=== PATIENT | female | born 1940 | race Caucasian/White ===

== ENCOUNTER 2022-02-27 12:49 | Outpatient (REF) | payer OTHER, SELFPAY ==
[2022-02-27 13:25] LABS: Abs Immature Grans 0.02 10^3/uL (0.0-0.06); Absolute Basophil Count 0.03 10^3/uL (0.0-0.2); Absolute Eosinophil Count 0.03 10^3/uL (0.0-0.7); Absolute Lymphocyte Count 1.41 10^3/uL (1.2-3.4); Absolute Neutrophil Count 4.01 10^3/uL (1.2-6.7); Basophils % 0.5; Eosinophils % 0.5; HCT 37.8 % (36.0-46.0); Immature Grans % 0.3; Lymphocytes % 22.4; MCH 29.5 pg (27.0-33.0); MCHC 34.4 % (32.0-36.0); MCV 86 fL (80-95); MPV 10.1 fL (8.0-11.0); Monocytes % 12.7; Neutrophils % 63.6; Platelet Count 275 10^3/uL (130-400); RBC 4.41 10^6/uL (3.93-5.22); RDW 11.5 % (11.7-14.6)
[2022-02-27 13:56] LABS: ALT 30 U/L (14-59); AST 32 U/L (15-37); Albumin 3.9 g/dL (3.4-5.0); Alkaline Phosphatase 73 U/L (46-116); Anion Gap 7.7 mmol/L (3-11); BUN 9 mg/dL (7-18); Bilirubin, Total 0.3 mg/dL (0.2-1.0); CO2 30.3 mmol/L (21.0-32.0); CREATININE 0.7 mg/dL (0.55-1.02); Calcium 9.5 mg/dL (8.5-10.1); Calculated LDL 149 mg/dL (<100); Chloride 97 mmol/L (98-107); Cholesterol 220 mg/dL (<200); Estimated GFR 87.37 (mL/min/1.73m2); Glucose 109 mg/dL (74-106); HDL Cholesterol 46 mg/dL (40-60); Potassium 3.8 mmol/L (3.5-5.1); Sodium 135 mmol/L (136-145); TSH 2.68 uIU/mL (0.36-3.74); Total Protein 7.7 g/dL (6.4-8.2); Triglyceride 127 mg/dL (<150)
== END 2022-02-27 12:50 | disposition home or self-care (01) ==
LOC: LBN 12:49
PROVIDERS: Visit Provider Nurse Practitioner Family
DX: I10 Essential (primary) hypertension (principal)
CPT/HCPCS: 80053; 80061; 84443; 85025

== ENCOUNTER 2024-04-26 18:32 | Emergency (ER) | payer MEDICARE, SELFPAY ==
[2024-04-26] VITALS (14 sets, daily range): BP systolic 191–221; BP diastolic 80–108; PULSE 70–99; RESP 16–20; TEMP 36.5; O2SAT 98–99
--- NOTE | 2024-04-26 18:30 | RT.EKG_ITS ---
APPROVED REPORT Exam: Resting ECG Reason for Exam: chest tightness Patient Location: E HR:84 bpm ECG Measurements Heart Rate 84 AXIS IL 170 P 70 QRSd 94 QRS 75 QT 382 T 30 QTc 451 Conclusion Sinus rhythm 84 normal axis no stemi
--- NOTE | 2024-04-26 18:45 | DI.RAD_ITS ---
Exam(s) XR CHEST 2V PA LATERAL EXAM: XR CHEST 2V PA LATERAL CLINICAL HISTORY: SOB, CP TECHNIQUE: 2D digital imaging was performed of the chest. Two images were obtained. PA and lateral views were obtained. COMPARISON: No exams were available for comparison FINDINGS: MEDIASTINUM: Normal. HEART: Normal. PULMONARY VASCULATURE: Normal. LUNGS: Clear. PLEURAL SPACE: No pleural effusion or pneumothorax. BONE:Within normal limits for the patient's age. OTHER FINDINGS:Normal. IMPRESSION: No acute pulmonary findings. DATA REPOSITORY: RADIATION DOSE DELIVERED:
--- NOTE | 2024-04-26 19:08 | ED.GENADUL_ITS ---
Discharge Plan Disposition Patient Disposition: Home Condition: Stable Discharge Details Clinical Impression: Diarrhea, Acute hyponatremia, Ovarian mass, left Primary Care Provider: Rahel Cordero ED Provider: Katrin Zaldivar Home Meds and New Rx's Prescriptions: No Action lisinopril 5 mg tablet 5 mg PO DAILY Qty: 90 3RF mupirocin 2 % ointment 1 applic topical TID Qty: 15 0RF amoxicillin-pot clavulanate 875-125 mg tablet 1 tab PO Q12H Qty: 14 0RF Discharge Instructions Instructions: Diarrhea, Adult ED, Ovarian Cyst ED, Hyponatremia Additional Instructions: CT shows a large round solid mass in the left side of your pelvis. This needs to be followed up very closely. Please follow-up with [facility] within the next week. You may also follow-up with your primary care provider. Your sodium level was low today which can be caused by the diarrhea. Please increase your sodium intake and drink some oral electrolyte drinks such as Gatorade or similar while having the diarrhea. Please collect stool at home and bring in to the lab for further testing. If you have diarrhea for longer than a week or more than 7 episodes a day you may try some Imodium and take as directed which she can get [id number]. Continue to apply the topical cream to your eleanor- area and rectum as needed for the burning. Referrals: [facility] [Provider Group] - 1 week (Left pelvic Mass) Rahel Cordero NP [Primary Care Provider] - HPI General Mode of arrival: ambulatory . Date/Time Provider Initiated Documentation: 04/26/24 18:35 . Limitations to Documentation: no limitations . Information obtained by: patient, RN notes reviewed and old records reviewed . HPI Narrative: 83-year-old female presents to the ER with a chief complaint of chest tightness, upper midepigastric abdominal pain, diarrhea and sinusitis type symptoms. She has been on Augmentin for the last 9 days. She reports diarrhea for the last week. She is hypertensive upon arrival. Related Data Home Medications ?Medication ?Instructions ?Recorded ?Confirmed amoxicillin 875 mg-potassium 1 tab PO Q12H #14 tabs 04/14/24 04/26/24 clavulanate 125 mg tablet lisinopril 5 mg tablet 5 mg PO DAILY #90 tabs 04/14/24 04/26/24 mupirocin 2 % topical ointment 1 applic topical TID #15 grams 04/14/24 04/14/24 Previous Rx's ?Medication ?Instructions ?Recorded amoxicillin 875 mg-potassium 1 tab PO Q12H #14 tabs 04/14/24 clavulanate 125 mg tablet lisinopril 5 mg tablet 5 mg PO DAILY #90 tabs 04/14/24 mupirocin 2 % topical ointment 1 applic topical TID #15 grams 04/14/24 Allergies Allergy/AdvReac Type Severity Reaction Status Date / Time No Known Allergies Allergy Verified 04/26/24 18:48 General Stated Complaint: RespSymp YVROSE: 3 Review of Systems All systems reviewed & are unremarkable except as noted in HPI and below ENT Ears, Nose, Mouth, and Throat: Reports nasal congestion Gastrointestinal Gastrointestinal: Reports abdominal pain and Reports diarrhea Genitourinary Genitourinary: Reports dysuria Exam Narrative Exam Narrative: Constitutional: Alert and oriented x3. Appears stated age. Normal body habitus. Head: Normocephalic, no trauma. Eyes: Pupils PERRL, Red reflex noted, EOM's intact. Eyelids symmetrical without lesions, discharge, or swelling. ENT: Bilateral TM's WNL, External ear normal to inspection, no mastoid TTP, swe lling, or erythema, Nasal turbinates WNL, no nasal discharge. Normal dentition, Posterior pharynx WNL, no exudate. Chest: RRR, Normal S1, S2, distal pulses intact. Resp: Lungs clear to auscultation bilaterally, no wheezes, rales, or rhonchi. Abdomen: Soft, non-distended, Normoactive bowel sounds all 4 quads. Musculoskeletal: Normal gait, Moves all 4 extremities without difficulty. Skin: No suspicious rashes or lesions. Capillary refill less than 2 sec. Neurologic: Cranial nerves II-XII intact. Alert and oriented x 3. Motor: No deficits noted. Sensory: Intact bilaterally all 4 extremities. Hematologic/Lymphatic: No ecchymosis, no lymphadenopathy. Course Vital Signs Vital signs: Vital Signs Temperature 36.5 C 04/26/24 18:35 Pulse 99 H 04/26/24 18:35 Respiratory Rate 20 04/26/24 18:35 Blood Pressure 220/108 H 04/26/24 18:35 Pulse Oximetry 98 04/26/24 18:35 Temperature 36.5 C 04/26/24 18:46 Temperature Source Oral 04/26/24 18:46 Pulse 99 H 04/26/24 18:46 Respiratory Rate 20 04/26/24 18:46 Respiratory Effort Normal 04/26/24 19:06 Respiratory Depth Normal 04/26/24 19:06 Blood Pressure 220/108 H 04/26/24 18:46 Blood Pressure Position Sitting 04/26/24 18:46 Pulse Oximetry 98 04/26/24 18:46 Oxygen Delivery Method Room Air 04/26/24 18:46 Oxygen Flow Rate 0 04/26/24 18:35 Pain Level 0 04/26/24 18:35 Medical Decision Making 83-year-old female presents to the ER with a chief complaint of chest tightness, upper midepigastric abdominal pain, diarrhea and sinusitis type symptoms. She has been on Augmentin for the last 9 days. She reports diarrhea for the last week. She is hypertensive upon arrival. Workup ordered including EKG, serial troponins, CBC CMP stool, Fluvid urinalysis and C. difficile. CBC shows no leukocytosis, sodium is low at 129 potassium 3.7 chloride 92 troponin less than 4, serial troponins canceled. Lipase is elevated at 105. Small blood in the urinalysis no leukocytes nitrites no evidence for UTI. Negative COVID flu and RSV. CT abdomen pelvis added on due to the elevated lipase. This could be from the diarrhea. CT shows a left pelvic mass concerning for Ovarian neoplasm or cystadenoma, given strict follow up instructions and home care. Patient given Pepcid prior to discharge and placed on care management list for assistance with follow up with [facility] or PCP. Blood pressures remain somewhat hypertensive throughout stay systolic 184. Given instructions for Imodium if continued diarrhea and sent home with stool collection kit. All her questions were answered to the best my ability. This text was generated using [employer] system, please disregard any oddities of phrase or misspellings. Imaging Data Radiologic Study: Imaging: CT Scan Radiologist's impression: Stomach and bowel: No oral contrast. Stomach partially decompressed. Fluid throughout the small bowel. No small bowel dilatation to suggest obstruction. Fluid throughout the colon suggesting diarrhea. No evidence of diverticulitis or colitis. Appendix: Appendix partially obscured but normal in caliber and appearance through its visualized portion. Intraperitoneal space: No gross ascites or free air. Vasculature: Normal caliber abdominal aorta. Lymph nodes: No pathologically enlarged mesenteric, retroperitoneal, or pelvic sidewall lymph nodes. Urinary bladder: Urinary bladder moderately distended. Mild circumferential bladder wall thickening. Reproductive: Prior hysterectomy. Normal-appearing right ovary, partially obscured. 9.6 cm x 5.8 cm x 7.1 cm cystic and solid mass in the expected location of the left ovary. Bones/joints: No acute fracture seen among the bones of the abdomen or pelvis. Spinal degenerative change with discogenic degeneration, endplate irregularities, Schmorl's nodes, vacuum disc deformities, marginal osteophytes, and facet arthrosis at multiple levels resulting in multilevel central canal and neural foraminal narrowing. Severe central canal narrowing noted at L4-L5. Soft tissues: No significant ventral or inguinal hernia. IMPRESSION: 1. Fluid throughout the small bowel and colon, nonspecific but commonly seen in the setting of diarrhea from any cause, including gastroenteritis. 2. Small hiatal hernia. 3. 9.6 cm x 5.8 cm x 7.1 cm cystic and solid mass in the expected location of the left ovary. A cystic ovarian neoplasm is suspected such as a serous or mucinous cystadenoma. Direct comparison with prior imaging is recommended versus further evaluation as per institution protocol. 4. Mild circumferential bladder wall thickening. Acute cystitis could have this appearance although an artifactual appearance created by underdistention can also produce apparent bladder wall thickening. Clinical correlation is recommended. Thank you for allowing us to participate in the care of your patient. Dictated and Authenticated by: Nish Wilson MD Lab Data Lab results reviewed: Yes I reviewed the patient's lab results. Labs: Laboratory Tests Range/Units 04/26/24 04/26/24 04/26/24 18:50 19:00 19:12 WBC (4.4-10.8) 10^3/uL 9.91 RBC (3.93-5.22) 10^6/uL 4.64 Hgb (11.2-15.7) g/dL 13.8 Hct (36.0-46.0) % 39.8 MCV (80-95) fL 86 MCH (27.0-33.0) pg 29.7 MCHC (32.0-36.0) % 34.7 RDW (11.7-14.6) % 11.9 Plt Count (130-400) 10^3/uL 243 MPV (8.0-11.0) fL 9.1 Immature Gran % % 0.3 Neutrophils % % 62.0 Lymphocytes % % 26.3 Monocytes % % 9.6 Eosinophils % % 1.2 Basophils % % 0.6 Nucleated RBC % (0.0-0.3) % 0.0 Absolute Neutrophils (1.2-6.7) 10^3/uL 6.14 Absolute Lymphocytes (1.2-3.4) 10^3/uL 2.61 Absolute Monocytes (0.1-0.8) 10^3/uL 0.95 H Absolute Eosinophils (0.0-0.7) 10^3/uL 0.12 Absolute Basophils (0.0-0.2) 10^3/uL 0.06 Sodium (136-145) mmol/L 129 L Potassium (3.5-5.1) mmol/L 3.7 Chloride (98-107) mmol/L 92 L Carbon Dioxide (21.0-32.0) mmol/L 27.8 Anion Gap (3-11) mmol/L 9.2 BUN (7-18) mg/dL 9 Creatinine (0.55-1.02) mg/dL 0.6 Est GFR (CKD-EPI 2020) (mL/min/1.73m2) 89.56 Glucose (74-106) mg/dL 95 Calcium (8.5-10.1) mg/dL 9.5 Magnesium (1.8-2.4) mg/dL 2.2 Total Bilirubin (0.2-1.0) mg/dL 0.5 AST (15-37) U/L 27 ALT (14-59) U/L 38 Alkaline Phosphatase (46-116) U/L 78 Troponin I (<or=51) ng/L < 4 Total Protein (6.4-8.2) g/dL 7.9 Albumin (3.4-5.0) g/dL 4.1 Lipase (<78) U/L 105 H Urine Color (Yellow) Yellow Urine Clarity (Clear) Clear Urine pH (5-8) 6.5 Ur Specific [place] (1.005-1.025) 1.010 Urine Protein (Neg-Trace) mg/dL Negative Urine Ketones (Negative) mg/dL Negative Urine Blood (Negative) Small H Urine Nitrite (Negative) Negative Urine Bilirubin (Negative) Negative Urine Urobilinogen (Up to 0.2) mg/dL 0.2 Ur Leukocyte Esterase (Negative) Negative Urine RBC (0-2) HPF 0-2 Urine WBC (0-5) HPF Negative Ur Epithelial Cells (Negative) HPF Rare Urine Crystals (Negative) HPF Negative Urine Bacteria (Negative) HPF Negative Urine Casts (Negative) LPF Negative Urine Mucus (Negative) Negative Ur Culture Indicated? No Urine Glucose (Negative) mg/dL Negative COVID-19 Source Nasopharynx SARS-CoV-2 (PCR) (Negative) Negative Influenza Type A (PCR) (Negative) Negative Influenza Type B (PCR) (Negative) Negative RSV (PCR) (Negative) Negative Range/Units 04/26/24 04/26/24 19:52 21:52 WBC (4.4-10.8) 10^3/uL RBC (3.93-5.22) 10^6/uL Hgb (11.2-15.7) g/dL Hct (36.0-46.0) % MCV (80-95) fL MCH (27.0-33.0) pg MCHC (32.0-36.0) % RDW (11.7-14.6) % Plt Count (130-400) 10^3/uL MPV (8.0-11.0) fL Immature Gran % % Neutrophils % % Lymphocytes % % Monocytes % % Eosinophils % % Basophils % % Nucleated RBC % (0.0-0.3) % Absolute Neutrophils (1.2-6.7) 10^3/uL Absolute Lymphocytes (1.2-3.4) 10^3/uL Absolute Monocytes (0.1-0.8) 10^3/uL Absolute Eosinophils (0.0-0.7) 10^3/uL Absolute Basophils (0.0-0.2) 10^3/uL Sodium (136-145) mmol/L Potassium (3.5-5.1) mmol/L Chloride (98-107) mmol/L Carbon Dioxide (21.0-32.0) mmol/L Anion Gap (3-11) mmol/L BUN (7-18) mg/dL Creatinine (0.55-1.02) mg/dL Est GFR (CKD-EPI 2020) (mL/min/1.73m2) Glucose (74-106) mg/dL Calcium (8.5-10.1) mg/dL Magnesium (1.8-2.4) mg/dL Total Bilirubin (0.2-1.0) mg/dL AST (15-37) U/L ALT (14-59) U/L Alkaline Phosphatase (46-116) U/L Troponin I (<or=51) ng/L Cancelled Cancelled Total Protein (6.4-8.2) g/dL Albumin (3.4-5.0) g/dL Lipase (<78) U/L Urine Color (Yellow) Urine Clarity (Clear) Urine pH (5-8) Ur Specific [place] (1.005-1.025) Urine Protein (Neg-Trace) mg/dL Urine Ketones (Negative) mg/dL Urine Blood (Negative) Urine Nitrite (Negative) Urine Bilirubin (Negative) Urine Urobilinogen (Up to 0.2) mg/dL Ur Leukocyte Esterase (Negative) Urine RBC (0-2) HPF Urine WBC (0-5) HPF Ur Epithelial Cells (Negative) HPF Urine Crystals (Negative) HPF Urine Bacteria (Negative) HPF Urine Casts (Negative) LPF Urine Mucus (Negative) Ur Culture Indicated? Urine Glucose (Negative) mg/dL COVID-19 Source SARS-CoV-2 (PCR) (Negative) Influenza Type A (PCR) (Negative) Influenza Type B (PCR) (Negative) RSV (PCR) (Negative) Quality:SDOH Health Related Social Needs: No Data to Display PFSH All Active Problems (Updated 04/26/24 @ 21:42 by Katrin Zaldivar NP) Ovarian mass, left (Acute) Acute hyponatremia (Acute) Diarrhea (Acute) Essential hypertension (Acute) Social History Smoking/Tobacco Use Status: Former Tobacco Use tobacco type: cigarettes Quit Date: 02/16/79 Tobacco: How many years used: 20 Second Hand Exposure: Yes Smoking risk assessment performed?: Yes Alcohol Intake: former Drug use: Never Substance use type: does not use Caregiver/Support person: No Household members: friend(s) Communication Needs: Corrective Lenses Do you need help understanding health information?: Rarely Pets and animals: No Sexually active: No Do you think of yourself as: straight/heterosexual Current gender identity: female What is your relationship status?: How often do you talk on the phone with friends or family?: once per week How often do you get together with friends or relatives?: once per week How often do you attend samaritan or moravian services?: 4 or more times per year Do you belong to any clubs or organized social groups?: no Panel score (0-1 are the most socially isolated patients): 1 What type of physical activity do you participate in: walking Duration: 30-45 minutes/day Nicole/Sikh: Jehovah'S Witness Special nicole needs: No Seatbelt use: always Helmet use: No Drive intox or ride w/intox non emergency services ambulance driver: No
[2024-04-26 19:27] LABS: Abs Immature Grans 0.03 10^3/uL (0.0-0.06); Absolute Basophil Count 0.06 10^3/uL (0.0-0.2); Absolute Eosinophil Count 0.12 10^3/uL (0.0-0.7); Absolute Lymphocyte Count 2.61 10^3/uL (1.2-3.4); Absolute Monocyte Count 0.95 10^3/uL (0.1-0.8); Absolute Neutrophil Count 6.14 10^3/uL (1.2-6.7); Basophils % 0.6 %; Eosinophils % 1.2 %; HCT 39.8 % (36.0-46.0); HGB 13.8 g/dL (11.2-15.7); Immature Grans % 0.3 %; Lymphocytes % 26.3 %; MCH 29.7 pg (27.0-33.0); MCHC 34.7 % (32.0-36.0); MCV 86 fL (80-95); MPV 9.1 fL (8.0-11.0); Monocytes % 9.6 %; Platelet Count 243 10^3/uL (130-400); RBC 4.64 10^6/uL (3.93-5.22); RDW 11.9 % (11.7-14.6); RDW-SD 37.6 fL; WBC 9.91 10^3/uL (4.4-10.8)
--- NOTE | 2024-04-26 19:30 | DI.CT_ITS ---
Exam(s) CT ABDOMEN PELVIS W EXAM: CT ABDOMEN PELVIS W CLINICAL HISTORY: Abdominal pain, Diarrhea TECHNIQUE: Imaging Protocol: Axial computed tomography images with coronal and sagittal reformatted images were created and reviewed. CONTRAST MATERIAL: Intravenous: Omnipaque 350 Contrast volume:75 mL Oral: No COMPARISON: No exams were available for comparison FINDINGS: ABDOMEN: Lung Bases: There is a small hiatal hernia. There is a calcified granuloma in the right lower lobe. Liver: Normal density. No measurable mass. Portal, Superior Mesenteric, and Splenic Veins: Unremarkable. Gallbladder and Biliary Tract: No radiodense calculus or dilation. Pancreas: Normal density, no abnormal calcifications or inflammatory process. Spleen: Normal. Adrenals: No masses seen. Kidneys: Normal size, contour and axis. No radiodense stones or obstructive uropathy. No masses seen. There is a duplicated left renal collecting system. Abdominal Aorta: Abdominal portion non-dilated. Atherosclerotic calcification is present. Bowel: No obstruction or bowel wall thickening. There is no evidence of appendicitis. Peritoneal Cavity: No ascites, collection or mesenteric inflammatory response. No free air. Lymph Nodes: Within normal limits. Bones: Within normal limits for the patient's age. Soft Tissues: Unremarkable. PELVIS: Bladder: Mild diffuse wall thickening of the urinary bladder. This may represent a cystitis. Please correlate clinically. Reproductive Organs: There is a 9.7 x 6.1 cm predominantly cystic mass in the left adnexa. It appear s to arise from the ovarian vessels suggesting this is an ovarian lesion. The right ovary is unremar kable and measures 1.4 x 2.2 cm (series 10, image 145). The patient is status post hysterectomy. Lymph Nodes: Within normal limits. Bones: Within normal limits for the patient's age. IMPRESSION: 1. 9.6 x 6.1 left adnexal predominantly cystic mass. Ovarian cystic neoplasm is suspected. Gynecolo gic consult is recommended for further evaluation. 2. Mild diffuse wall thickening of the urinary bladder. This may represent a cystitis. Please corre late clinically. RADIATION DOSE DELIVERED: 375.42mGy.cm Total DLP DATA REPOSITORY: All CT scans at this facility are submitted to the National Radiology Data Registry (NRDR) Dose Index Registry (DIR) with the [employer] (ACR). RADIATION OPTIMIZATION: All CT scans at this facility use at least one of these dose optimization te chniques: automated exposure control; mA and/or kV adjustment per patient size (includes targeted exa ms where dose is matched to clinical indication); or iterative reconstruction.
[2024-04-26 19:36] LABS: Bilirubin Negative (Negative); Blood Small (Negative); Clarity Clear (Clear); Glucose Negative (Negative); Ketones Negative (Negative); Leukocyte Esterase Negative (Negative); Nitrite Negative (Negative); Urobilinogen 0.2 mg/dL (Up to 0.2); pH 6.5 (5-8)
[2024-04-26 19:38] LABS: COVID-19 PCR Negative (Negative); Influenza A PCR Negative (Negative); Influenza B PCR Negative (Negative); RSV PCR Negative (Negative)
[2024-04-26 19:39] LABS: Lipase 105 U/L (<78)
[2024-04-26 19:42] LABS: Source Nasopharynx
[2024-04-26 19:45] LABS: ALT 38 U/L (14-59); AST 27 U/L (15-37); Albumin 4.1 g/dL (3.4-5.0); Alkaline Phosphatase 78 U/L (46-116); Anion Gap 9.2 mmol/L (3-11); BUN 9 mg/dL (7-18); Bilirubin, Total 0.5 mg/dL (0.2-1.0); CO2 27.8 mmol/L (21.0-32.0); CREATININE 0.6 mg/dL (0.55-1.02); Calcium 9.5 mg/dL (8.5-10.1); Chloride 92 mmol/L (98-107); Estimated GFR 89.56 (mL/min/1.73m2); Glucose 95 mg/dL (74-106); Magnesium 2.2 mg/dL (1.8-2.4); Potassium 3.7 mmol/L (3.5-5.1); Sodium 129 mmol/L (136-145); Total Protein 7.9 g/dL (6.4-8.2); Troponin I < 4 ng/L (<or=51)
[2024-04-26 19:45] LABS: Bacteria Negative HPF (Negative); C & S Indicated? No; Casts Negative LPF (Negative); Crystals Negative HPF (Negative); Epithelial Cells Rare HPF (Negative); Mucus Negative (Negative); RBC 0-2 HPF (0-2); WBC Negative HPF (0-5)
[2024-04-26] MEDS: Omnipaque 350 MG/ML 100 ML BTL IJ (20:04)
[2024-04-26] MEDS: Normal Saline - Diluent 50 ML VIAL IJ (20:05)
[2024-04-26] MEDS: Normal Saline Flush 10 ML SYR IVP (20:06)
[2024-04-26] MEDS: Normal Saline 500 ML IV (20:33)
--- NOTE | 2024-04-26 21:03 | DI.VRAD_ITS ---
PROCEDURE INFORMATION: Exam: XR Chest Exam date and time: 04/26/2024 8:08 PM Age: 83 years old Clinical indication: Shortness of breath; SOB, cp TECHNIQUE: Imaging protocol: Radiologic exam of the chest. Views: 2 views. COMPARISON: CT ABDOMEN PELVIS W 04/26/2024 8:03 PM FINDINGS: Lungs: The lung pierce appear clear. No pulmonary consolidation is seen. Pleural spaces: No pleural effusion or pneumothorax is demonstrated. Heart/Mediastinum: The heart appears normal in size. Bones/joints: The visualized bony structures appear grossly intact. There are small osteophytes along the anterior vertebral margin. IMPRESSION: No active disease is seen in the chest. Dictated and Authenticated by: Nish Wilson MD. Orderin Kayley Wilkes MD
--- NOTE | 2024-04-26 21:10 | DI.VRAD_ITS ---
PROCEDURE INFORMATION: Exam: CT Abdomen And Pelvis With Contrast Exam date and time: 04/26/2024 8:03 PM Age: 83 years old Clinical indication: Abdominal pain; Generalized; Abd pain, diarrhea TECHNIQUE: Imaging protocol: Computed tomography of the abdomen and pelvis with contrast. Radiation optimization: All CT scans at this facility use at least one of these dose optimization techniques: automated exposure control; mA and/or kV adjustment per patient size (includes targeted exams where dose is matched to clinical indication); or iterative reconstruction. Contrast material: OMNIPAQUE 350; Contrast volume: 75 ml; Contrast route: INTRAVENOUS (IV); COMPARISON: No relevant prior studies available. FINDINGS: Lungs: Lung bases clear. Diaphragm: Small Bochdalek hernia on the left. Small hiatal hernia. Liver: Normal appearing liver. Gallbladder and biliary ducts: Gallbladder partially collapsed. No calcified gallstones seen. No biliary dilatation. Pancreas: Normal appearing pancreas. Spleen: Normal appearing spleen. Adrenal glands: Normal appearing adrenal glands. Kidneys and ureters: Normal-appearing right kidney. No right-sided hydronephrosis. Duplicated left renal collecting system. Mild distension of the collecting system in the left upper pole moiety. Mild distension of both left-sided ureters to the level of the left pelvic sidewall mass. Distal left ureter collapsed. Stomach and bowel: No oral contrast. Stomach partially decompressed. Fluid throughout the small bowel. No small bowel dilatation to suggest obstruction. Fluid throughout the colon suggesting diarrhea. No evidence of diverticulitis or colitis. Appendix: Appendix partially obscured but normal in caliber and appearance through its visualized portion. Intraperitoneal space: No gross ascites or free air. Vasculature: Normal caliber abdominal aorta. Lymph nodes: No pathologically enlarged mesenteric, retroperitoneal, or pelvic sidewall lymph nodes. Urinary bladder: Urinary bladder moderately distended. Mild circumferential bladder wall thickening. Reproductive: Prior hysterectomy. Normal-appearing right ovary, partially obscured. 9.6 cm x 5.8 cm x 7.1 cm cystic and solid mass in the expected location of the left ovary. Bones/joints: No acute fracture seen among the bones of the abdomen or pelvis. Spinal degenerative change with discogenic degeneration, endplate irregularities, Schmorl's nodes, vacuum disc deformities, marginal osteophytes, and facet arthrosis at multiple levels resulting in multilevel central canal and neural foraminal narrowing. Severe central canal narrowing noted at L4-L5. Soft tissues: No significant ventral or inguinal hernia. IMPRESSION: 1. Fluid throughout the small bowel and colon, nonspecific but commonly seen in the setting of diarrhea from any cause, including gastroenteritis. 2. Small hiatal hernia. 3. 9.6 cm x 5.8 cm x 7.1 cm cystic and solid mass in the expected location of the left ovary. A cystic ovarian neoplasm is suspected such as a serous or mucinous cystadenoma. Direct comparison with prior imaging is recommended versus further evaluation as per institution protocol. 4. Mild circumferential bladder wall thickening. Acute cystitis could have this appearance although an artifactual appearance created by underdistention can also produce apparent bladder wall thickening. Clinical correlation is recommended. Dictated and Authenticated by: Nish Wilson MD. Orderin Kayley Wilkes MD
[2024-04-26] MEDS: Famotidine 20 MG/2 ML VIAL IVP (21:25)
[2024-04-26] MEDS: Normal Saline 1,000 ML 200 ML IV (21:42)
== END 2024-04-26 22:01 | disposition home or self-care (01) ==
PROVIDERS: Emergency Provider Registered Nurse Emergency; PCP Nurse Practitioner Family
DX: R19.7 Diarrhea, unspecified (principal); E87.1 Hypo-osmolality and hyponatremia; R19.09 Other intra-abdominal and pelvic swelling, mass and lump; Z87.891 Personal history of nicotine dependence
CPT/HCPCS: 80053; 83690; 87637; 93005; 96361; 96374; 99285; 71046; 74177; 81003; 81015; 83735; 84484; 85025; 93010; 99284; J3490

== ENCOUNTER 2024-04-29 12:46 | Outpatient (REF) | payer MEDICARE, SELFPAY ==
[2024-04-29 15:20] LABS: ALT 31 U/L (14-59); AST 25 U/L (15-37); Albumin 4.1 g/dL (3.4-5.0); Alkaline Phosphatase 75 U/L (46-116); BUN 6 mg/dL (7-18); Bilirubin, Total 0.3 mg/dL (0.2-1.0); CREATININE 0.6 mg/dL (0.55-1.02); Calcium 9.5 mg/dL (8.5-10.1); Chloride 100 mmol/L (98-107); Estimated GFR 89.56 (mL/min/1.73m2); Glucose 95 mg/dL (74-106); Potassium 4.6 mmol/L (3.5-5.1); Sodium 137 mmol/L (136-145); Total Protein 7.7 g/dL (6.4-8.2)
[2024-04-29 16:20] LABS: Bilirubin Negative (Negative); Blood Trace-intact (Negative); COMMENT (LAB VIEW ONLY) < 13.00 mg/dL; Clarity Clear (Clear); Glucose Negative (Negative); Ketones Negative (Negative); Leukocyte Esterase Negative (Negative); Nitrite Negative (Negative); Urobilinogen 0.2 mg/dL (Up to 0.2)
== END 2024-04-29 12:47 | disposition home or self-care (01) ==
LOC: NCHCN 12:46
PROVIDERS: PCP Nurse Practitioner Family; Visit Provider Nurse Practitioner Family
DX: I10 Essential (primary) hypertension (principal)
CPT/HCPCS: 80053; 81003; 82043; 82570